=== PATIENT | female | born 1950 | race Caucasian/White ===

== ENCOUNTER → 2019-07-24 | Outpatient (REF) ==
[~2019-07-24] MED LIST: ACET65TA OR; BABY81CH OR; MULTIVIT PO; PERC5TAB8 OR; PERC7.5T8 OR
== END ==
LOC: M LAB LCGH 13:59
PROVIDERS: ATTEND Surgery
DX: R10.32 Left lower quadrant pain (principal); R19.4 Change in bowel habit